=== PATIENT | female | born 1975 | race Caucasian/White ===

== ENCOUNTER 2018-01-27 19:20 | Emergency (ER) | payer BC ==
[~2018-01-27] VITALS: Ht 154.9 cm; Wt 65.8 kg
[2018-01-27] MEDS ORDERED: SILV400C TOP (19:35)
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
[2018-01-27 19:42] VITALS: BP 138/66
--- NOTE | 2018-01-27 19:55 | NUR ---
PLACED DRESSING ON LEFT FOREARM WITH KERLIX AND SILVERDINE OINT ORDERED
[2018-01-27] MEDS ORDERED: SILVER SULFADIAZINE 1% CREAM 50 GM TP ONE (20:00)
--- NOTE | 2018-01-27 20:07 | NUR ---
Patient discharged to home in stable conditon WITH TAKING PATIENT HOME. Written and verbal after care instructions given. Patient verbalizes understanding of instructions. WALKED OUT OF ER WITH NO DISTRESS NOTED
[2018-01-27] MEDS ORDERED: SILVER SULFADIAZINE 1% CREAM 25 GM TUBE TP ONE (20:08)
== END 2018-01-27 20:11 | disposition other institution (70) ==
LOC: ER 19:21
DX: T22.212A Burn of second degree of left forearm, initial encounter (principal); Z79.899 Other long term (current) drug therapy; X19.XXXA Contact with other heat and hot substances, initial encounter; Y93.89 Activity, other specified; Y92.89 Other specified places as the place of occurrence of the external cause; Y99.8 Other external cause status
CPT/HCPCS: 16020; 99284; A4663